=== PATIENT | male | born 1990 | race Caucasian/White ===

== ENCOUNTER 2021-08-27 17:57 | Emergency (ER) | payer OTHER, SELFPAY ==
[2021-08-27 18:00] VITALS: BP 127/81; PULSE 74; RESP 18; TEMP 36.8; O2SAT 98; BMI 26.6
[2021-08-27] MEDS: diphenhydrAMINE 25 mg Capsule PO (19:12)
[2021-08-27] MEDS: methylPREDNISolone (DEPO) 80 MG/ML INJ 1 mL IM (19:13)
--- NOTE | 2021-08-27 19:15 | W.ED.ALLEREA ---
Documented by User: ANNELISE Ngo 08/27/21 21:31 HPI - Allergic Reaction General: Chief complaint: Allergic Reaction Stated complaint: Allergic Reaction, Lips Swelling Time Seen by Provider: 08/27/21 18:21 History of Present Illness: HPI narrative: Patient states he has had increasing number of episodes urticaria over the last couple 3 months. He is not sure what they are related to. Sitting episode today after eating peanut butter jelly sandwich and he had urticaria he took some Benadryl and that went away but his lips swelled and they have not gone down much. Did have itching earlier. Denies any itching now denies any shortness of breath. Associated symptoms: Deny abdominal pain, nausea or vomiting Review of Systems Narrative: Planes ongoing intermittent allergic reactions, urticaria. No known cause. Const: Denies: fever(s), chills or body aches Eyes: Denies: eye discomfort ENMT: Denies: throat pain Card: Denies: chest pain Resp: Denies: dyspnea GI: Denies: abdominal pain, nausea or vomiting Skin/Breast: Reports: pruritus and skin swelling; Denies: rash Neuro: Denies: headache(s) Psych: Denies: depression or suicidal ideation Physical Exam Const: COMMON NORMALS: no acute distress, patient oriented x3 and alert HENMT: COMMON NORMALS: normocephalic and external ears normal HEAD & SCALP: normocephalic EXTERNAL EAR: Yes external ears normal OTHER: Lower lip with mild swelling. No evidence of urticaria presently. Eye: COMMON NORMALS: EOMs intact bilaterally Neck/C-Spine: COMMON NORMALS: no JVD Resp: COMMON NORMALS: normal respiratory effort, No use of accessory muscles and clear to auscultation bilaterally AUSCULTATION: clear to auscultation bilaterally Cardio: COMMON NORMALS: no JVD GI: INSPECTION: Yes normal to inspection Extremity: COMMON NORMALS: normal to inspection and full ROM Neuro: COMMON NORMALS: patient oriented x3 SENSORIUM/ORIENTATION: Yes alert Psych: COMMON NORMALS: mental status grossly normal Skin: COMMON NORMALS: no rashes or lesions noted GENERAL SKIN EXAM: no rashes or lesions noted Course Vital Signs: Vital signs: Vital Signs Temperature 98.3 F 08/27/21 18:00 Pulse Rate 74 08/27/21 18:00 Respiratory Rate 18 08/27/21 18:00 Blood Pressure 127/81 08/27/21 18:00 Pulse Oximetry 98 08/27/21 18:00 MDM - Allergic Reaction Medical Decision Making Ongoing urticaria. Did have lip swelling this afternoon Patient has improved since taking the Benadryl. Patient has no signs urticaria now. This urticaria has been for a few months and they cannot figure out what is causing it yet. Patient not follow-up primary care but does have appointment this Monday with primary care. Patient provide steroids and proper use.. Take Benadryl and keep a diary of foods and chemical contactants such that he can remember when he does have his attacks. Discharge Plan Discharge Patient Disposition: Home Clinical Impression: Urticaria Condition: Stable Prescriptions: New prednisone 20 mg tablet 20 mg PO DAILY Qty: 14 0RF Discharge Orders: Discharge ED (Routine); Ordered 08/27/21 Ordered By: Doron Courtney Referrals: Giselle Mathews MD [Primary Care Provider] - Discharge Diet: Usual diet Discharge Activity: Increase activity as tolerated Patient Instructions: Urticaria (ED) Activity Restrictions/Additional Instructions: Follow-up with medical provider as directed. Take medications as prescribed. Return to the ER or your medical provider if condition worsens. Please read and understand discharge instructions. If any questions ask please. Keep a diary of all your symptoms and exposure to foods or drinks or chemicals liquids if you are due for each time he had the symptoms. 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 Did have lip swelling this afternoon Patient has improved since taking the Benadryl. Patient has no signs urticaria now. This urticaria has been for a few months and they cannot figure out what is causing it yet. Patient not follow-up primary care but does have appointment this Monday with primary care. Patient provide steroids and proper use.. Take Benadryl and keep a diary of foods and chemical contactants such that he can remember when he does have his attacks. This patient was originally seen by ANNELISE Malhotra.? I agree with his history, evaluation, and treatment. Discharge Plan Discharge Patient Disposition: Home Clinical Impression: Urticaria Condition: Stable Prescriptions: New prednisone 20 mg tablet 20 mg PO DAILY Qty: 14 0RF Discharge Orders: Discharge ED (Routine); Ordered 08/27/21 Ordered By: Doron Courtney Referrals: Giselle Mathews MD [Primary Care Provider] - Discharge Diet: Usual diet Discharge Activity: Increase activity as tolerated Patient Instructions: Urticaria (ED) Activity Restrictions/Additional Instructions: Follow-up with medical provider as directed. Take medications as prescribed. Return to the ER or your medical provider if condition worsens. Please read and understand discharge instructions. If any questions ask please. Keep a diary of all your symptoms and exposure to foods or drinks or chemicals liquids if you are due for each time he had the symptoms. Keep some prednisone with you and take to those immediately if you start having another allergic reaction along with 50 mg Benadryl Stand Alone Forms: Work/School Release Coding Level of Care Code ED Reservation Sales Agent for [employer] Fwd Exam Comprehensive
== END 2021-08-27 19:21 | disposition home or self-care (01) ==
PROVIDERS: Emergency Provider Nurse Practitioner Family; PCP Family Medicine
DX: L50.0 Allergic urticaria (principal)
CPT/HCPCS: 96372; 99283; J1040

== ENCOUNTER → 2022-10-11 11:22 | Outpatient (BNVA) | payer SELFPAY | PROVIDERS: PCP Family Medicine; Visit Provider Family Medicine | DX: Z91.018 Allergy to other foods (principal); Z13.6 Encounter for screening for cardiovascular disorders | CPT/HCPCS: 80053; 85025; 86003; 86008 ==

== ENCOUNTER → 2023-05-28 11:14 | Outpatient (BNVA) | payer OTHER, SELFPAY | PROVIDERS: PCP Family Medicine; Visit Provider Emergency Medicine | DX: R05.9 Cough, unspecified (principal) | CPT/HCPCS: 87400; 87426 ==

== ENCOUNTER → 2024-02-22 16:34 | Outpatient (BNVA) | payer OTHER, SELFPAY | PROVIDERS: PCP Family Medicine; Visit Provider Nurse Practitioner | DX: R05.9 Cough, unspecified (principal) | CPT/HCPCS: 71046 ==

== ENCOUNTER → 2024-04-01 08:32 | Outpatient (BNVA) | payer OTHER, SELFPAY | PROVIDERS: PCP Family Medicine; Visit Provider Family Medicine | DX: Z91.018 Allergy to other foods (principal); Z13.6 Encounter for screening for cardiovascular disorders | CPT/HCPCS: 80053; 80061; 84439; 84443; 85025; 86003; 86008 ==